=== PATIENT | male | born 1995 | race Caucasian/White ===

== ENCOUNTER 2017-03-01 07:38 | Emergency (ER) | payer SELFPAY ==
[2017-03-01 07:59] LABS: URINE SOURCE CLEAN CATCH
[2017-03-01 08:09] LABS: URINE APPEARANCE TURBID; URINE BILIRUBIN NEG (NEG); URINE BLOOD 2+ (NEG); URINE COLOR YELLOW; URINE GLUCOSE NEG (NEG); URINE KETONE NEG (NEG); URINE LEUKOCYTE ESTERASE 3+ (NEG); URINE NITRATE NEG (NEG); URINE PROTEIN 1+ (NEG); URINE SPECIFIC GRAVITY 1.023 (1.003-1.035)
[2017-03-01 08:12] LABS: CULTURE INDICATED? YES; URBCS1 AUWI 25-50 /[HPF] (0-2); URINE BACTERIA AUWI NEG (NEGATIVE); URINE SQUAMOUS EPITHELIAL CELL NONE SEEN /[HPF]; UWBCS1 AUWI INNUM (0-5)
[2017-03-03 11:59] LABS: CHLAMYDIA TRACH Not Detected (Not Detected); N GONOR Detected (Not Detected)
== END 2017-03-01 08:33 | disposition home or self-care (01) ==
LOC: CED 07:38 → CFTX 07:38 → CED 08:07 → CFTX 08:07
PROVIDERS: Physician Assistant
DX: N34.1 Nonspecific urethritis (principal); J45.909 Unspecified asthma, uncomplicated; F17.210 Nicotine dependence, cigarettes, uncomplicated; Z88.6 Allergy status to analgesic agent
CPT/HCPCS: 81003; 87086; 87491; 87591; 96372; 99283; J0696